=== PATIENT | female | born 1990 | race Caucasian/White ===

== ENCOUNTER 2016-11-26 09:49 | Day surgery (SDC) | payer BC ==
[2016-11-26] MEDS ORDERED: D5 LR 1000 ML 1,000 ML IV ONE (10:10)
[2016-11-26] MEDS ORDERED: DIPRIVAN VIAL 20 ML ONE (11:16)
[2016-11-26 12:09] VITALS: BP 117/70
== END 2016-11-26 12:00 | disposition home or self-care (01) ==
LOC: SURG1 09:49
PROVIDERS: ATTEND Internal Medicine Gastroenterology
PROC: 0DB58ZX Excision of Esophagus, Via Natural or Artificial Opening Endoscopic, Diagnostic (ICD-10-PCS; principal; 2016-11-26 13:00)
PROC: 0DB88ZX Excision of Small Intestine, Via Natural or Artificial Opening Endoscopic, Diagnostic (ICD-10-PCS; principal; 2016-11-26 13:00)
PROC: 0DJ08ZZ Inspection of Upper Intestinal Tract, Via Natural or Artificial Opening Endoscopic (ICD-10-PCS; principal; 2016-11-26 13:00)
PROC: 0DB68ZX Excision of Stomach, Via Natural or Artificial Opening Endoscopic, Diagnostic (ICD-10-PCS; principal; 2016-11-26 13:00)
PROC: 0D757ZZ Dilation of Esophagus, Via Natural or Artificial Opening (ICD-10-PCS; principal; 2016-11-26 13:00)
DX: R10.13 Epigastric pain (principal); R11.0 Nausea; R13.19 Other dysphagia; K21.9 Gastro-esophageal reflux disease without esophagitis; K22.2 Esophageal obstruction; K22.4 Dyskinesia of esophagus; K20.8 Other esophagitis; K29.60 Other gastritis without bleeding
CPT/HCPCS: A4217; J3490; J7120

== ENCOUNTER → 2016-12-02 | Outpatient (CLI) | payer BC ==
[2016-11-26 12:09] VITALS: BP 117/70
[2016-12-02 13:53] LABS: BASOPHILS # (AUTO) 0.1 X10^3/uL (0.0-0.1); BASOPHILS % (AUTO) 0.8 % (0.2-1.0); EOSINOPHILS # (AUTO) 0.1 x10^3/uL (0.0-0.2); EOSINOPHILS % (AUTO) 0.7 % (0.9-2.9); HEMATOCRIT 41.4 % (36.0-47.0); HEMOGLOBIN 13.9 g/dL (12.0-16.0); LYMPHOCYTES # (AUTO) 2.6 X10^3/uL (1.3-2.9); LYMPHOCYTES % (AUTO) 31.6 % (21.0-51.0); MEAN CORPUSCULAR HEMOGLOBIN 28.9 pg (27.0-34.0); MEAN CORPUSCULAR HGB CONC 33.7 g/dL (33.0-35.0); MEAN PLATELET VOLUME 8.6 fL (7.4-11.0); MONOCYTES # (AUTO) 0.4 x10^3/uL (0.3-0.8); MONOCYTES % (AUTO) 4.7 % (0.0-13.0); NEUTROPHILS # (AUTO) 5.2 x10^3/uL (2.2-4.8); NEUTROPHILS % (AUTO) 62.2 % (42.0-75.0); PLATELET COUNT 205 X10^3/uL (150.0-450.0); RED BLOOD COUNT 4.82 X10^6/uL (3.5-5.4); RED CELL DISTRIBUTION WIDTH 14.1 % (11.6-16.5); WHITE BLOOD COUNT 8.3 X10^3/uL (3.6-10.0)
--- NOTE | 2016-12-02 13:58 | RAD ---
HISTORY: Shortness of breath Study: Two view chest Comparison: None Findings: There is gaseous distention of the stomach. The lungs are clear without consolidation, effusion or p neumothorax. The cardiac and mediastinal contours are within normal limits. The soft tissues are un remarkable. IMPRESSION: 1. No acute cardiopulmonary abnormality. Reported By:
== END ==
LOC: LAB 12:50
PROVIDERS: ATTEND Internal Medicine Gastroenterology
DX: R06.02 Shortness of breath (principal)
CPT/HCPCS: 36415; 71020; 85025

== ENCOUNTER 2018-12-16 07:24 | Inpatient (IN) ==
[2018-12-16] MEDS ORDERED: NS 1000 ML 1,000 ML ONE ×2 (07:34→10:57)
[2018-12-16] MEDS ORDERED: TORADOL 30 MG VIAL ONE ×2 (07:43→13:32)
[2018-12-16] MEDS ORDERED: ZOFRAN INJ 4 MG VIAL ONE ×4 (07:43→14:46)
[2018-12-16] MEDS ORDERED: NS 1000 ML 1,000 ML IV ONE ×2 (07:47→10:57)
[2018-12-16] MEDS ORDERED: TORADOL 30 MG VIAL IVP ONE ×2 (07:47→13:39)
[2018-12-16] MEDS ORDERED: ZOFRAN INJ 4 MG VIAL IVP ONE ×2 (07:47→09:58)
[2018-12-16] MEDS ORDERED: MORPHINE SULFATE INJ 4 MG ONE (07:53)
[2018-12-16] MEDS ORDERED: MORPHINE SULFATE INJ 4 MG IVP ONE (07:58)
[2018-12-16 08:08] LABS: BILIRUBIN,URINE NEGATIVE (NEGATIVE); BLOOD/HEMOGLOBIN,URINE 5+ (NEGATIVE); GLUCOSE, URINE NEGATIVE (NEGATIVE); KETONES,URINE NEGATIVE (NEGATIVE); LEUKOCYTE ESTERASE ,URINE 1+ (NEGATIVE); NITRITES,URINE NEGATIVE (NEGATIVE); PROTEIN,URINE 2+ (NEGATIVE); UROBILINOGEN,URINE NORMAL (NORMAL)
[2018-12-16 08:15] LABS: APPEARANCE,URINE HAZY (CLEAR); BACTERIA,URINE TRACE /HPF (NEGATIVE); COLOR,URINE ORANGE (YELLOW); MUCUS,URINE FEW /HPF (NEGATIVE); RBC,URINE TNTC /HPF (NONE SEEN); SQUAMOUS EPITHELIAL CELL,UR RARE /HPF (NEGATIVE)
[2018-12-16] MEDS ORDERED: FLOMAX PO STA (08:15)
[2018-12-16] MEDS ORDERED: FLOMAX ONE (08:16)
--- NOTE | 2018-12-16 08:27 | CT ---
HISTORY: Right flank pain Study: CT abdomen pelvis without contrast Comparison: 09/10/2015 Technique: Axial noncontrast images with coronal and sagittal reformats. Dose reduction procedures were used with mA/kv adjusted for body size. Findings: The lung bases are clear. The liver, spleen, adrenal glands, and pancreas are within normal limits to the limitations of an unenhanced examination. No opaque stones are visible within the gallbladder. Right renal calculi are identified. There is right-sided hydronephrosis proximal to a 7.5 mm calculus located at the right ureteropelvic junction. More distally the ureter is normal. Multiple left renal calculi are present. No left ureteral calculi are identified. No intraperitoneal or retroperitoneal lymphadenopathy of significance is identified. The aorta is of normal caliber. The appendix is normal. There is no evidence for diverticulitis or colitis. Examination of the pelvis demonstrated no evidence for pelvic masses, pelvic fluid, or pelvic lymphadenopathy. No bladder abnormality is identified. No lytic or blastic skeletal lesions of significance are identified. IMPRESSION: 7.5 mm obstructing proximal right ureteral calculus located at or near the right ureteropelvic junction Multiple bilateral nonobstructing renal calculi Reported By:
[2018-12-16] MEDS ORDERED: DILAUDID INJ IVP PRN (09:15)
--- NOTE | 2018-12-16 09:20 | DR.GENAD ---
HPI Time Seen Time Seen by Provider: 12/16/18 09:15 PCP Primary Care Physician: CARITO HPI Comment HPI Comment: PATIENT IS 28YR OLD WHITE FEMALE WITH HISTORY OF KIDNEY STONE IS IN ED WITH SEVERE RIGHT FLANK PAIN SINCE LAST NIGHT. PATIENT HAVE HISTORY OF OBTRCTING KIDNEY STONES. CT ABDOMEN AND PELLVIC 08/23 2014 AND 09/10/2015 HAVE REPORT OBSTRUCTING KIDNEY STONES PREVIOUSLY. SHE IS NAUSEATED AND VOMITING. LOW GRADE FEVER NO DYSURIA. Complaint/Symptoms Chief Complaint Doctors Comments: RIGHT FLANK PAIN SINCE LAST NIGHT. Chief Complaint:: PT STATED SHE HAS A HX OF KIDNEY STONES AND HAVING RIGHT FLANK PAIN SINCE LAST NIGHT Nurses notes reviewed Nurses Notes Review: Yes Source History Provided: Patient Mode of Arrival Mode of Arrival: Ambulatory Timing Onset of Chief Complaint: 12/15/18 Came on: Suddenly Duration Duration: Constant Duration: Hours Location Location: PAIN LOCATED IN THE RIGHT FLANK ARREA. Severity Severity: Severe Modifying Factors Worsens:: MOVEMENT. Improves:: LAYING STILL. Associated Signs and Symptoms Associated Signs and Symptoms: PAIN ASSOCIATED WITH NAUSEA AND VOMITING. Other History Other History: HISTORY OF OBSTRUCTING KIDNEY STONE. PMH PMH Past Medical History: Yes Past Medical History: Hypothyroidism and Kidney Stones Past Surgical History: Yes Surgical History: , Ortho Surgery and Lithotripsy Family History History of Family Medical Conditions: Yes Family Medical History: Cancer and Hypertension Social History Does patient currently use any type of tobacco product: No Have you used tobacco products in the last 12 months: No Type of Tobacco Use: None Does any household member use tobacco: No Alcohol Use: None Do you use any recreational Drugs:: No Lives With: Family Lives Where: Home infectious screening In the last 2 months have you had wt loss of >10#?: NO Have you had fever, night sweats or hemotysis?: No Have you traveled outside the country in the last 6 months?: No Isolation: Standard ROS Review of Systems Constitutional: No Symptoms Reported, Fever and Fatigue; negative Chills and Weakness Eyes: No Symptoms Reported; negative Eye Pain, Tearing and Discharge ENTM: No Symptoms Reported; negative Ear Pain, Nose Discharge, Nose Congestion and Throat Pain Respiratoy: negative Productive Cough, Short of Breath, Wheezing and Hemoptysis Cardiovascular: No Symptoms Reported; negative Chest Pain and Edema Gastrointestinal/Abdominal: Abdominal Pain, Nausea and Vomiting; negative Constipation and Diarrhea Genitourinary: Other (RIGHT FLANK PAIN.); negative Dysuria, Frequency and Hematuria Neurological: negative Headache, Seizure, Weakness and Dizziness Musculoskeletal: Back Pain (RIGHT FLANK PAIN.); negative Muscle Pain Integumentary: No Symptoms Reported; negative Change in Color, Bruises and Juandice Hematologic/Lymphatic: No Symptoms Reported; negative Anemia, Easy Bleeding, Easy Bruising, Swollen Glands and Lymphadenopathy Endocrine: No Symptoms Reported; negative Flushing, Increased Thirst and Increased Urine Psychiatric: No Symptoms Reported All Other Systems: Reviewed and Negative PE Vital Signs Vitals: Temperature 99.6 F Pulse Rate [Right Brachial] 56 Respiratory Rate 18 Blood Pressure [Right Arm] 124/87 Blood Pressure [Left Arm] 126/61 Blood Pressure 126/61 O2 Sat by Pulse Oximetry 96 General Limitations: No Limitations General Appearance: Alert and In No Apparent Distress; negative In Distress Head Head Exam: Normal Inspection, Atraumatic and Normocephalic Eyes Eye exam: Normal Appearance and PERRL; negative Scleral Icterus and Conjunctival Injection ENT ENT Exam: Normal Exam, Normal Oropharynx, Normal External Ear Exam, Mucous Membranes Dry and TM's Normal Bilaterally External Ear Exam: Normal External Inspection; negative Mastoid Tenderness, Pain with Movement and External Tenderness TM/Canal Exam: Bilateral: Normal Nose Exam: Normal Nose Exam; negative Sinus Tenderness, Nasal Deviation and Septal Hematoma Mouth Exam: Normal Inspection; negative Trismus, Lip Swelling and Tongue Swelling Throat Exam: Normal Inspection; negative Tonsillar Erythema, Tonsillomegaly and Tonsillar Exudate Neck Neck Exam: Normal Inspection, Full ROM and Trachea Midline; negative Tenderness Chest Chest Inspection: Normal Inspection and Symmetric Chest Wall Rise; negative Tenderness and Rash Respiratory Respiratory Exam: Normal Lung Sounds Bilat; negative Accessory Muscle Use, Chest Wall Tenderness and Respiratory Distress Respiratory Exam: Bilateral: Clear to Auscultation Cardiovascular Cardiovascular Exam: Regular Rate and Normal Rhythm; negative Systolic Murmur, Diastolic Murmur, Rubs and Gallop Abdominal Exam Abdominal Exam: Normal Bowel Sounds and Soft; negative Tenderness Extremities Extremities Exam: Normal Inspection and Normal Capillary Refill; negative Tender ness and Edema Back Back Exam: (R) CVA Tenderness; negative Tenderness, Paraspinal Tenderness and Vertebral Tenderness Neurologic Neurological Exam: Alert and Oriented X3; negative Motor Sensory Deficit Psychiatric Psychiatric Exam: Normal Affect and Normal Mood Skin Skin Exam: Dry MDM Additional Information Additional Information Obtained From: Old Records and Family Differential Diagnosis Differential Diagnosis: KIDNEY STONE, PYELONEPHRITIS, UTI COURSE Treatment Treatment: SEE ORDERS. 07:35 : TORADOL 30MG IV AND 07:44 : NS 1L IV BOLUS IN ED. MORPHINE 4MG AND ZOFRAN 4MG IV IN ED. PAIN IMPROVE BUT CAME BACK AFTER FEW HOURS. NORMAL SALINE IV BOLUS IN ED. 09:15 : DILAUDID 2MG IV. PATIENT STILL HAVING PAIN. FLOMAX 0.4MG PO. PATIENT CONTINUE TO HAVE PAIN. AFTER 2 LITERS OF NS AMD SEVERAL DOSES OF PAIN MEDS, PATIENT WAS ADMITTED TO HOSPITAL. Consultation Consultation Comments: DR. ENAMORADO WILL ADMIT PATIENT PER NURSE. PRELIMINARY ADMIT ORDERS DONE BY ME. Education/Counseling Education/Counseling: Patient and Family Educated On: Diagnosis ROR Labs Reviewed Laboratory Results Reviewed?: Yes Result Diagrams: 12/19/18 04:46 12/19/18 04:46 Laboratory: WBC 6.7 X10^3/uL (3.6-10.0) 12/19/18 04:46 RBC 3.68 X10^6/uL (3.5-5.4) 12/19/18 04:46 Hgb 10.7 g/dL (12.0-16.0) L 12/19/18 04:46 Hct 32.3 % (36.0-47.0) L 12/19/18 04:46 MCV 87.8 fL (80.0-100.0) 12/19/18 04:46 MCH 29.1 pg (27.0-34.0) 12/19/18 04:46 MCHC 33.2 g/dL (33.0-35.0) 12/19/18 04:46 RDW 15.2 % (11.6-16.5) 12/19/18 04:46 Plt Count 192 X10^3/uL (150.0-450.0) 12/19/18 04:46 MPV 9.1 fL (7.4-11.0) 12/19/18 04:46 Neut % (Auto) 67.8 % (42.0-75.0) 12/19/18 04:46 Lymph % (Auto) 22.7 % (21.0-51.0) 12/19/18 04:46 White % (Auto) 6.6 % (0.0-13.0) 12/19/18 04:46 Eos % (Auto) 2.5 % (0.9-2.9) 12/19/18 04:46 Baso % (Auto) 0.4 % (0.2-1.0) 12/19/18 04:46 Neut # (Auto) 4.5 x10^3/uL (2.2-4.8) 12/19/18 04:46 Lymph # (Auto) 1.5 X10^3/uL (1.3-2.9) 12/19/18 04:46 White # (Auto) 0.4 x10^3/uL (0.3-0.8) 12/19/18 04:46 Eos # (Auto) 0.2 x10^3/uL (0.0-0.2) 12/19/18 04:46 Baso # (Auto) 0.0 X10^3/uL (0.0-0.1) 12/19/18 04:46 Absolute Nucleated RBC 0.0 /100WBC 12/19/18 04:46 Sodium 142 mmol/L (136-145) 12/19/18 04:46 Corrected Sodium TNP 12/19/18 04:46 Potassium 3.9 mmol/L (3.5-5.1) 12/19/18 04:46 Chloride 110 mmol/L (98-107) H 12/19/18 04:46 Carbon Dioxide 23.6 mmol/L (21-32) 12/19/18 04:46 BUN 6 mg/dL (7-18) L 12/19/18 04:46 Creatinine 1.12 mg/dL (0.55-1.02) H 12/19/18 04:46 Est GFR (MDRD) Af Amer > 60 (>60) 12/19/18 04:46 Est GFR (MDRD) Non-Af > 60 (>60) 12/19/18 04:46 Glucose 94 mg/dL (65-99) 12/19/18 04:46 Calcium 8.2 mg/dL (8.5-10.1) L 12/19/18 04:46 Corrected Calcium 9.3 mg/dL (8.5-10.1) 12/19/18 04:46 Total Bilirubin 0.20 mg/dL (0.2-1.0) 12/19/18 04:46 AST 10 Units/L (15-37) L 12/19/18 04:46 ALT 19 Units/L (12-78) 12/19/18 04:46 Alkaline Phosphatase 57 Units/L (46-116) 12/19/18 04:46 Creatine Kinase 35 Units/L (26-192) 12/18/18 19:04 CK-MB (CK-2) < 1.0 ng/mL (0-4.0) 12/18/18 19:04 CK/CKMB % Calc 2.9 % (<4) 12/18/18 19:04 Troponin I < 0.02 ng/mL (0-1.5) 12/18/18 19:04 Total Protein 5.7 g/dL (6.4-8.2) L 12/19/18 04:46 Albumin 2.6 g/dL (3.4-5.0) L 12/19/18 04:46 Globulin 3.1 g/dL (2.5-4.5) 12/19/18 04:46 Albumin/Globulin Ratio 0.8 Ratio (1.1-2.1) L 12/19/18 04:46 Specimen Type Clean catch urine 12/16/18 19:15 Urine Color Yellow (YELLOW) 12/16/18 19:15 Urine Appearance Cloudy (CLEAR) 12/16/18 19:15 Urine pH 6.0 (5.0 - 8.0) 12/16/18 19:15 Ur Specific [place] 1.020 (1.000-1.030) 12/16/18 19:15 Urine Protein 2+ (NEGATIVE) 12/16/18 19:15 Urine Glucose (UA) Negative (NEGATIVE) 12/16/18 19:15 Urine Ketones Negative (NEGATIVE) 12/16/18 19:15 Urine Occult Blood 5+ (NEGATIVE) 12/16/18 19:15 Urine Nitrite Negative (NEGATIVE) 12/16/18 19:15 Urine Bilirubin Negative (NEGATIVE) 12/16/18 19:15 Urine Urobilinogen Normal (NORMAL) 12/16/18 19:15 Ur Leukocyte Esterase 1+ (NEGATIVE) 12/16/18 19:15 Urine RBC Tntc /HPF (NONE SEEN) 12/16/18 19:15 Urine WBC 3-5 /HPF (NONE SEEN) 12/16/18 19:15 Ur Squamous Epith Cells Few /HPF (NEGATIVE) 12/16/18 19:15 Urine Bacteria Trace /HPF (NEGATIVE) 12/16/18 19:15 Urine Mucus Few /HPF (NEGATIVE) 12/16/18 07:55 Ur Culture Indicated? No/not indicated 12/16/18 19:15 XRAY XRAY Interpreted by: Radiologist XRAY Findings: REPORT ON RECORD NOTED AND DISCUSS WITH PATIENT AND HER . Instructions Instructions: Kidney Stones Flank Pain, Adult, [id number]
[2018-12-16 09:38] LABS: BASOPHILS % (AUTO) 0.4 % (0.2-1.0); EOSINOPHILS % (AUTO) 0.5 % (0.9-2.9); HEMATOCRIT 37.2 % (36.0-47.0); HEMOGLOBIN 12.4 g/dL (12.0-16.0); LYMPHOCYTES # (AUTO) 1.2 X10^3/uL (1.3-2.9); LYMPHOCYTES % (AUTO) 17.6 % (21.0-51.0); MEAN CORPUSCULAR HEMOGLOBIN 28.7 pg (27.0-34.0); MEAN CORPUSCULAR HGB CONC 33.3 g/dL (33.0-35.0); MEAN CORPUSCULAR VOLUME 86.3 fL (80.0-100.0); MEAN PLATELET VOLUME 8.4 fL (7.4-11.0); MONOCYTES # (AUTO) 0.4 x10^3/uL (0.3-0.8); MONOCYTES % (AUTO) 5.3 % (0.0-13.0); NEUTROPHILS # (AUTO) 5.4 x10^3/uL (2.2-4.8); NEUTROPHILS % (AUTO) 76.2 % (42.0-75.0); PLATELET COUNT 204 X10^3/uL (150.0-450.0); RED BLOOD COUNT 4.32 X10^6/uL (3.5-5.4); RED CELL DISTRIBUTION WIDTH 15.1 % (11.6-16.5)
[2018-12-16 09:46] LABS: ALANINE AMINOTRANSFERASE 26 Units/L (12-78); ALBUMIN 3.4 g/dL (3.4-5.0); ALKALINE PHOSPHATASE 63 Units/L (46-116); ASPARTATE AMINO TRANSFERASE 13 Units/L (15-37); BLOOD UREA NITROGEN 22 mg/dL (7-18); CALCIUM 8.7 mg/dL (8.5-10.1); CARBON DIOXIDE 24.6 mmol/L (21-32); CHLORIDE 106 mmol/L (98-107); CREATININE 0.87 mg/dL (0.55-1.02); SODIUM 140 mmol/L (136-145); TOTAL PROTEIN 6.5 g/dL (6.4-8.2); eGFR NON BLACK RACES > 60 (>60)
[2018-12-16] MEDS ORDERED: PHENERGAN INJ 25 MG IM ONE ×2 (10:57→11:02)
[2018-12-16] MEDS ORDERED: MORPHINE SULFATE INJ 2 MG INJ ONE (11:07)
[2018-12-16] MEDS ORDERED: PHENERGAN INJ 25 MG IM PRN (14:12)
[2018-12-16] MEDS ORDERED: PEPCID 20 MG IV PREMIX* 20 MG/50 ML BAG IV PRN (14:17)
[2018-12-16] MEDS: NS 1000 ML 1,000 ML IV SCH ×3 (14:56→23:01)
[2018-12-16] MEDS: ZOFRAN INJ 4 MG VIAL IVP PRN (14:56)
[2018-12-16] MEDS: DILAUDID INJ IVP PRN ×2 (14:56→23:00)
[2018-12-16] MEDS: TORADOL 30 MG VIAL IVP PRN (19:20)
[2018-12-16 20:04] LABS: BILIRUBIN,URINE NEGATIVE (NEGATIVE); BLOOD/HEMOGLOBIN,URINE 5+ (NEGATIVE); GLUCOSE, URINE NEGATIVE (NEGATIVE); KETONES,URINE NEGATIVE (NEGATIVE); LEUKOCYTE ESTERASE ,URINE 1+ (NEGATIVE); NITRITES,URINE NEGATIVE (NEGATIVE); PROTEIN,URINE 2+ (NEGATIVE); UROBILINOGEN,URINE NORMAL (NORMAL)
[2018-12-16 20:05] LABS: APPEARANCE,URINE CLOUDY (CLEAR); COLOR,URINE YELLOW (YELLOW)
[2018-12-16 20:10] LABS: BACTERIA,URINE TRACE /HPF (NEGATIVE); RBC,URINE TNTC /HPF (NONE SEEN); SQUAMOUS EPITHELIAL CELL,UR FEW /HPF (NEGATIVE)
[2018-12-17] MEDS: DILAUDID INJ IVP PRN ×3 (03:11→16:39)
[2018-12-17] MEDS: TORADOL 30 MG VIAL IVP PRN ×3 (04:49→20:12)
[2018-12-17 05:32] LABS: BASOPHILS % (AUTO) 0.3 % (0.2-1.0); EOSINOPHILS # (AUTO) 0.1 x10^3/uL (0.0-0.2); EOSINOPHILS % (AUTO) 2.1 % (0.9-2.9); HEMATOCRIT 35.1 % (36.0-47.0); HEMOGLOBIN 11.7 g/dL (12.0-16.0); LYMPHOCYTES # (AUTO) 1.8 X10^3/uL (1.3-2.9); LYMPHOCYTES % (AUTO) 27.1 % (21.0-51.0); MEAN CORPUSCULAR HEMOGLOBIN 29.3 pg (27.0-34.0); MEAN CORPUSCULAR HGB CONC 33.2 g/dL (33.0-35.0); MEAN CORPUSCULAR VOLUME 88.2 fL (80.0-100.0); MEAN PLATELET VOLUME 9.2 fL (7.4-11.0); MONOCYTES # (AUTO) 0.5 x10^3/uL (0.3-0.8); MONOCYTES % (AUTO) 7.5 % (0.0-13.0); NEUTROPHILS # (AUTO) 4.3 x10^3/uL (2.2-4.8); PLATELET COUNT 191 X10^3/uL (150.0-450.0); RED BLOOD COUNT 3.98 X10^6/uL (3.5-5.4); RED CELL DISTRIBUTION WIDTH 15.5 % (11.6-16.5); WHITE BLOOD COUNT 6.8 X10^3/uL (3.6-10.0)
[2018-12-17 05:36] LABS: ALANINE AMINOTRANSFERASE 21 Units/L (12-78); ALBUMIN 2.8 g/dL (3.4-5.0); ALKALINE PHOSPHATASE 58 Units/L (46-116); ASPARTATE AMINO TRANSFERASE 10 Units/L (15-37); BLOOD UREA NITROGEN 14 mg/dL (7-18); CARBON DIOXIDE 24.9 mmol/L (21-32); CHLORIDE 108 mmol/L (98-107); CREATININE 1.11 mg/dL (0.55-1.02); SODIUM 141 mmol/L (136-145); TOTAL PROTEIN 5.8 g/dL (6.4-8.2); eGFR NON BLACK RACES > 60 (>60)
[2018-12-17] MEDS: SYNTHROID 100 mcg TAB PO SCH (05:59)
[2018-12-17] MEDS: NS 1000 ML 1,000 ML IV SCH ×5 (07:12→20:15)
--- NOTE | 2018-12-17 20:03 | DR.H&P ---
H&P - History & Physical for Day of: H&P Date: 12/16/18 - Chief Complaint Chief Complaint: RIGHT FLANK PAIN - History of Present Illness History of Present Illness: IS A 28 YEAR OLD PATIENT OF OURS WHO PRESENTED TO THE ER WITH COMPLAINTS OF RIGHT FLANK PAIN X 1 DAY. PATIENT HAS A HISTORY OF KIDNEY STONES. ON ARRIVAL, VITALS WERE 98.6-20-53-99%-144/78. LABS WERE OBTAINED. ABNORMAL LAB VALUES INCLUDE THE FOLLOWING: BUN 22, GLUCOSE 107, AST 13. URINALYSIS REVEALED RBC TNTC, WBC 3-5, LEUKOCYTES 1+, BACTERIA TRACE. AN ABDOMEN/PELVIS CT WAS OBTAINED AND REVEALED: 7.5 mm obstructing proximal right ureteral calculus located at or near the right ureteropelvic junction. Multiple bilateral nonobstructing renal calculi. SHE WAS GIVEN A NORMAL SALINE BOLUS X 2, ZOFRAN 4MG IV X 2, TORADOL 30MG IV X 2 DOSES, DILAUDID 2MG IV X 1, FLOMAX 0.4MG PO X 1, AND MORPHIN 4MG IV X 1 DOSE. SHE REPORTED SLIGHT RELIEF OF PAIN. SHE WAS ADMITTED FOR FURTHER EVALUATION AND TREATMENT OF AN OBSTUCTING URETER STONE WITH FLANK PAIN. SHE WAS STARTED ON NORMAL SALINE AT 250ML/HR, TORADOL 30MG IV Q6H PRN, DILAUDID 1MG IV Q4H PRN, AND ZOFRAN 4MG IV Q6H PRN. WE PLAN TO FOLLOW UP WITH AM LABS AND CONTINUE TO MONITOR. - Past Medical History Past Medical History: Hypothyroidism, Kidney Stones - Past Surgical History Surgical History: , Lithotripsy, Ortho Surgery - Family History Family Medical History: Cancer, Hypertension - Social History Does patient currently use any type of tobacco product: No Have you used tobacco products in the last 12 months: No Type of Tobacco Use: None Does any household member use tobacco: No Alcohol Use: None Drug Use: None - Medications Home Medications: cefaclor [From Ceclor] Allergy (Verified 12/16/18 07:28) - Review of Systems Constitutional: No Symptoms Reported Eyes: No Symptoms Reported ENT: No Symptoms Reported Respiratory: No Symptoms Reported Cardiovascular: No Symptoms Reported Gastrointestinal: Nausea, Vomiting, Abdominal Pain Genitourinary: No Symptoms Reported Musculoskeletal: See HPI Skin: No Symptoms Reported Neurological: No Symptoms Reported - Physical Exam Vital Signs: Temperature 98.6 F Pulse Rate [Right Brachial] 82 Respiratory Rate 16 Blood Pressure [Right Arm] 115/55 Blood Pressure [Left Arm] 126/61 Blood Pressure 126/61 O2 Sat by Pulse Oximetry 98 Oriented: Normal Eyes: Normal Ear: Normal Nose: Normal Throat: Normal Respiratory: Diminished Throughout Cardiovascular: Normal : Normal Auscultation: Bowel Sounds: Normal Palpation: Normal Tenderness: RLQ, Other (RIGHT FLANK PAIN ) Skin: Normal Musculoskeletal: Normal Psychiatric: Normal Mood Description: Calm Affect: Normal Speech Pattern: Clear - Assessment/Plan (1) Urinary tract stones Status: Acute Plan: PAIN CONTROL, IV HYDRATION, CONTINUE TO MONITOR (2) Flank pain Status: Acute - Allergies Allergies/Adverse Reactions: Allergies Allergy/AdvReac Type Severity Reaction Status Date / Time cefaclor [From [facility]] Allergy Verified 12/16/18 07:28
[2018-12-18] MEDS: DILAUDID INJ IVP PRN ×3 (00:34→20:49)
[2018-12-18] MEDS: NS 1000 ML 1,000 ML IV SCH ×5 (00:38→18:06)
[2018-12-18] MEDS: TORADOL 30 MG VIAL IVP PRN ×3 (04:58→19:13)
[2018-12-18 05:29] LABS: BASOPHILS % (AUTO) 0.4 % (0.2-1.0); EOSINOPHILS # (AUTO) 0.2 x10^3/uL (0.0-0.2); EOSINOPHILS % (AUTO) 2.6 % (0.9-2.9); HEMATOCRIT 32.9 % (36.0-47.0); HEMOGLOBIN 10.9 g/dL (12.0-16.0); LYMPHOCYTES # (AUTO) 1.8 X10^3/uL (1.3-2.9); LYMPHOCYTES % (AUTO) 27.6 % (21.0-51.0); MEAN CORPUSCULAR HEMOGLOBIN 29.3 pg (27.0-34.0); MEAN CORPUSCULAR HGB CONC 33.2 g/dL (33.0-35.0); MEAN CORPUSCULAR VOLUME 88.1 fL (80.0-100.0); MONOCYTES # (AUTO) 0.4 x10^3/uL (0.3-0.8); MONOCYTES % (AUTO) 6.8 % (0.0-13.0); NEUTROPHILS # (AUTO) 4.1 x10^3/uL (2.2-4.8); NEUTROPHILS % (AUTO) 62.6 % (42.0-75.0); PLATELET COUNT 189 X10^3/uL (150.0-450.0); RED BLOOD COUNT 3.73 X10^6/uL (3.5-5.4); RED CELL DISTRIBUTION WIDTH 15.4 % (11.6-16.5); WHITE BLOOD COUNT 6.5 X10^3/uL (3.6-10.0)
[2018-12-18 05:40] LABS: ALANINE AMINOTRANSFERASE 19 Units/L (12-78); ALBUMIN 2.7 g/dL (3.4-5.0); ALKALINE PHOSPHATASE 56 Units/L (46-116); ASPARTATE AMINO TRANSFERASE 9 Units/L (15-37); BLOOD UREA NITROGEN 8 mg/dL (7-18); CALCIUM 8.2 mg/dL (8.5-10.1); CHLORIDE 110 mmol/L (98-107); COR CA(FOR HYPOALB) 9.2 mg/dL (8.5-10.1); CREATININE 1.09 mg/dL (0.55-1.02); SODIUM 142 mmol/L (136-145); TOTAL PROTEIN 5.6 g/dL (6.4-8.2); eGFR NON BLACK RACES > 60 (>60)
[2018-12-18] MEDS: SYNTHROID 100 mcg TAB PO SCH (06:00)
--- NOTE | 2018-12-18 08:04 | CT ---
HISTORY: Right flank pain with history of stones Study: CT abdomen and pelvis without contrast Comparison: December 16, 2018 Technique: Multiple axial images of the abdomen and pelvis were obtained from the lung bases to the pubic symphysis without the administration of IV contrast. AEC was utilized. Findings: There has been interval development of patchy bibasilar consolidation representing atelectasis versus pneumonia. The liver, spleen, pancreas, and adrenal glands are unremarkable. The gallbladder is unremarkable in its CT appearance. There are numerous bilateral renal caliceal stones with a persistent 7-8 mm stone at the right UPJ with severe proximal hydronephrosis and moderate perinephric stranding with the distal ureter mildly dilated as well. Hounsfield units greater than 900. There is asymmetric prominence of the right ovarian vein of uncertain etiology and of doubtful clinical significance. Trace free fluid is noted and felt to be physiologic in a patient of this age. There is no pneumoperitoneum. There are shotty probable reactive retroperitoneal lymph nodes. The appendix is not identified on this noncontrast exam. The urinary bladder is grossly unremarkable. The bony structures are grossly intact. There is a small mesenteric fat containing umbilical hernia. IMPRESSION: Persistent 7-8 mm right UPJ stone with moderate to severe obstructive uropathy which has progressed and bilateral nephrolithiasis. Incidental prominent right ovarian vein. Reported By:
[2018-12-18] MEDS: ZOFRAN INJ 4 MG VIAL IVP PRN ×2 (10:13→20:50)
[2018-12-18] MEDS ORDERED: PHENERGAN INJ 25 MG IM PRN (12:00)
[2018-12-18] MEDS ORDERED: PHENERGAN INJ 25 MG IM ONE (12:39)
--- NOTE | 2018-12-18 17:02 | PCM.PROG ---
Progress Note - Progress Note for Day of Date of Exam: 12/17/18 - Subjective Subjective: WAS ADMITTED FOR A OBSTRUCTING URETER STONE AND INTRACTABLE FLANK PAIN. TODAY, SHE IS ALERT AND ORIENTED, LYING IN BED ON MORNING ROUNDS. SHE CONTINUES WITH PAIN TO THE RIGHT FLANK. ON EXAMINATION, HEART IS REGULAR IN RATE AND RHYTHM. BILATERAL LUNGS ARE CLEAR TO AUSCULTATION. ABDOMEN IS ROUND, SOFT, AND NOTED WITH MILD PAIN TO THE RIGHT LOWER QUADRANT AND RIGHT FLANK AREA. HER VITALS THIS MORNING ARE 98.1-91-20-95%-128/68. LABS WERE OBTAINED. ABNORMAL LAB VALUES INCLUDE THE FOLLOWING: HGB 11.7, HCT 35.1, CHLORIDE 108, CREATININE 1.11, CALCIUM 8.0, AST 10, TOTAL PROTEIN 5.8, ALBUMIN 2.8. SHE IS CURRENTLY RECEIVING NORMAL SALINE AT 250ML/HR, DILAUDID 1MG IV Q4H PRN PAIN, AND TORADOL 30MG IV Q6H PRN PAIN. WE WILL CONTINUE WITH CURRENT PLAN OF CARE TODAY. WE WILL REPEAT AN ABDOMEN/PELVIS CT WITHOUT CONTRAST IN THE MORNING. OTHERWISE, WE WILL FOLLOW-UP WITH AM LABS AND CONTINUE TO MONITOR. - Past Medical Family Social History Past Med/Fam/Surg Hx: No changes since H&P Allergies: Allergies cefaclor [From Ceclor] Allergy (Verified 12/16/18 07:28) - Review of Systems ROS: No change since H&P - Vital Signs and I&O's Vital Signs: Temperature 99.1 F Pulse Rate [Right Brachial] 71 Respiratory Rate 18 Blood Pressure [Right Arm] 120/76 Blood Pressure [Left Arm] 126/61 Blood Pressure 126/61 O2 Sat by Pulse Oximetry 96 Intake and Output: Intake & Output 12/16/18 12/17/18 12/18/18 12/19/18 11:59 11:59 11:59 11:59 Intake Total 4900 / 4900 5800 / 5800 Output Total 1100 / 1100 4250 / 4250 Balance 3800 / 3800 1550 / 1550 - Physical Exam Oriented: Normal Eyes: Normal Ear: Normal Nose: Normal Throat: Normal Cardiovascular: Normal : Normal Auscultation: Bowel Sounds: Normal Palpation: Normal Tenderness: RLQ, Other (RIGHT FLANK PAIN ) Skin: Normal Musculoskeletal: Normal Psychiatric: Normal Mood Description: Calm Affect: Normal Speech Pattern: Clear, Appropriate - Laboratory and Diagnostics Result Diagrams: 12/18/18 04:52 12/18/18 04:52 Labs: Laboratory WBC 6.5 X10^3/uL (3.6-10.0) 12/18/18 04:52 RBC 3.73 X10^6/uL (3.5-5.4) 12/18/18 04:52 Hgb 10.9 g/dL (12.0-16.0) L 12/18/18 04:52 Hct 32.9 % (36.0-47.0) L 12/18/18 04:52 MCV 88.1 fL (80.0-100.0) 12/18/18 04:52 MCH 29.3 pg (27.0-34.0) 12/18/18 04:52 MCHC 33.2 g/dL (33.0-35.0) 12/18/18 04:52 RDW 15.4 % (11.6-16.5) 12/18/18 04:52 Plt Count 189 X10^3/uL (150.0-450.0) 12/18/18 04:52 MPV 9.0 fL (7.4-11.0) 12/18/18 04:52 Neut % (Auto) 62.6 % (42.0-75.0) 12/18/18 04:52 Lymph % (Auto) 27.6 % (21.0-51.0) 12/18/18 04:52 [place] % (Auto) 6.8 % (0.0-13.0) 12/18/18 04:52 Eos % (Auto) 2.6 % (0.9-2.9) 12/18/18 04:52 Baso % (Auto) 0.4 % (0.2-1.0) 12/18/18 04:52 Neut # (Auto) 4.1 x10^3/uL (2.2-4.8) 12/18/18 04:52 Lymph # (Auto) 1.8 X10^3/uL (1.3-2.9) 12/18/18 04:52 [place] # (Auto) 0.4 x10^3/uL (0.3-0.8) 12/18/18 04:52 Eos # (Auto) 0.2 x10^3/uL (0.0-0.2) 12/18/18 04:52 Baso # (Auto) 0.0 X10^3/uL (0.0-0.1) 12/18/18 04:52 Absolute Nucleated RBC 0.1 /100WBC 12/18/18 04:52 Sodium 142 mmol/L (136-145) 12/18/18 04:52 Corrected Sodium TNP 12/18/18 04:52 Potassium 4.0 mmol/L (3.5-5.1) 12/18/18 04:52 Chloride 110 mmol/L (98-107) H 12/18/18 04:52 Carbon Dioxide 23.0 mmol/L (21-32) 12/18/18 04:52 BUN 8 mg/dL (7-18) 12/18/18 04:52 Creatinine 1.09 mg/dL (0.55-1.02) H 12/18/18 04:52 Est GFR (MDRD) Af Amer > 60 (>60) 12/18/18 04:52 Est GFR (MDRD) Non-Af > 60 (>60) 12/18/18 04:52 Glucose 91 mg/dL (65-99) 12/18/18 04:52 Calcium 8.2 mg/dL (8.5-10.1) L 12/18/18 04:52 Corrected Calcium 9.2 mg/dL (8.5-10.1) 12/18/18 04:52 Total Bilirubin 0.20 mg/dL (0.2-1.0) 12/18/18 04:52 AST 9 Units/L (15-37) L 12/18/18 04:52 ALT 19 Units/L (12-78) 12/18/18 04:52 Alkaline Phosphatase 56 Units/L (46-116) 12/18/18 04:52 Total Protein 5.6 g/dL (6.4-8.2) L 12/18/18 04:52 Albumin 2.7 g/dL (3.4-5.0) L 12/18/18 04:52 Globulin 2.9 g/dL (2.5-4.5) 12/18/18 04:52 Albumin/Globulin Ratio 0.9 Ratio (1.1-2.1) L 12/18/18 04:52 Specimen Type Clean catch urine 12/16/18 19:15 Urine Color Yellow (YELLOW) 12/16/18 19:15 Urine Appearance Cloudy (CLEAR) 12/16/18 19:15 Urine pH 6.0 (5.0 - 8.0) 12/16/18 19:15 Ur Specific [place] 1.020 (1.000-1.030) 12/16/18 19:15 Urine Protein 2+ (NEGATIVE) 12/16/18 19:15 Urine Glucose (UA) Negative (NEGATIVE) 12/16/18 19:15 Urine Ketones Negative (NEGATIVE) 12/16/18 19:15 Urine Occult Blood 5+ (NEGATIVE) 12/16/18 19:15 Urine Nitrite Negative (NEGATIVE) 12/16/18 19:15 Urine Bilirubin Negative (NEGATIVE) 12/16/18 19:15 Urine Urobilinogen Normal (NORMAL) 12/16/18 19:15 Ur Leukocyte Esterase 1+ (NEGATIVE) 12/16/18 19:15 Urine RBC Tntc /HPF (NONE SEEN) 12/16/18 19:15 Urine WBC 3-5 /HPF (NONE SEEN) 12/16/18 19:15 Ur Squamous Epith Cells Few /HPF (NEGATIVE) 12/16/18 19:15 Urine Bacteria Trace /HPF (NEGATIVE) 12/16/18 19:15 Urine Mucus Few /HPF (NEGATIVE) 12/16/18 07:55 Ur Culture Indicated? No/not indicated 12/16/18 19:15 - Plan (1) Urinary tract stones Status: Acute Plan: REPEAT ABD/PELVIS CT IN AM, PAIN CONTROL, IV HYDRATION, CONTINUE TO M ONITOR (2) Flank pain Status: Acute
[2018-12-18 19:31] LABS: CREATINE KINASE 35 Units/L (26-192); CREATINE KINASE MB < 1.0 ng/mL (0-4.0); TROPONIN I < 0.02 ng/mL (0-1.5)
[2018-12-18 19:47] LABS: CKMB % 2.9 % (<4)
--- NOTE | 2018-12-18 21:17 | PCM.PROG ---
Progress Note - Progress Note for Day of Date of Exam: 12/18/18 - Subjective Subjective: WAS ADMITTED FOR A OBSTRUCTING URETER STONE AND INTRACTABLE FLANK PAIN. TODAY, SHE IS ALERT AND ORIENTED, LYING IN BED ON MORNING ROUNDS. SHE CONTINUES WITH MODERATE PAIN TO THE RIGHT FLANK. ON EXAMINATION, HEART IS REGULAR IN RATE AND RHYTHM. BILATERAL LUNGS ARE CLEAR TO AUSCULTATION. ABDOMEN IS ROUND, SOFT, AND NOTED WITH PAIN TO THE RIGHT LOWER QUADRANT AND RIGHT FLANK AREA. HER VITALS THIS MORNING ARE 98.3-53-20-98%-110/66. LABS WERE OBTAINED. ABNORMAL LAB VALUES INCLUDE THE FOLLOWING: HGB 10.9, HCT 32.9, CHLORIDE 110, CREATININE 1.09, CALCIUM 8.2, AST 9, TOTAL PROTEIN 5.6, ALBUMIN 2.7. AN ABDOMEN/PELVIS CT WAS REPEATED THIS MORNING AND REVEALED: Persistent 7-8 mm right UPJ stone with moderate to severe obstructive uropathy which has progressed and bilateral nephrolithiasis. Incidental prominent right ovarian vein. SHE IS CURRENTLY RECEIVING NORMAL SALINE AT 250ML/HR, DILAUDID 1MG IV Q4H PRN PAIN, AND TORADOL 30MG IV Q6H PRN PAIN. WE WILL CONTINUE WITH CURRENT PLAN OF CARE TODAY. OTHERWISE, WE WILL FOLLOW-UP WITH AM LABS AND CONTINUE TO MONITOR. - Past Medical Family Social History Past Med/Fam/Surg Hx: No changes since H&P Allergies: Allergies cefaclor [From Ceclor] Allergy (Verified 12/16/18 07:28) - Review of Systems ROS: No change since H&P - Vital Signs and I&O's Vital Signs: Temperature 100.1 F Pulse Rate [Right Brachial] 55 Respiratory Rate 18 Blood Pressure [Right Arm] 157/72 Blood Pressure [Left Arm] 126/61 Blood Pressure 126/61 O2 Sat by Pulse Oximetry 99 Intake and Output: Intake & Output 12/16/18 12/17/18 12/18/18 12/19/18 11:59 11:59 11:59 11:59 Intake Total 4900 / 4900 5800 / 5800 360 / 360 Output Total 1100 / 1100 4250 / 4250 2100 / 2100 Balance 3800 / 3800 1550 / 1550 -1740 / -1740 - Physical Exam Oriented: Normal Eyes: Normal Ear: Normal Nose: Normal Throat: Normal Respiratory: Diminished Cardiovascular: Normal : Normal Auscultation: Bowel Sounds: Normal Palpation: Normal Tenderness: RLQ, Other (RIGHT FLANK PAIN ) Skin: Normal Musculoskeletal: Normal Psychiatric: Normal Mood Description: Calm Affect: Normal Speech Pattern: Clear, Appropriate - Laboratory and Diagnostics Result Diagrams: 12/18/18 04:52 12/18/18 04:52 Labs: Laboratory WBC 6.5 X10^3/uL (3.6-10.0) 12/18/18 04:52 RBC 3.73 X10^6/uL (3.5-5.4) 12/18/18 04:52 Hgb 10.9 g/dL (12.0-16.0) L 12/18/18 04:52 Hct 32.9 % (36.0-47.0) L 12/18/18 04:52 MCV 88.1 fL (80.0-100.0) 12/18/18 04:52 MCH 29.3 pg (27.0-34.0) 12/18/18 04:52 MCHC 33.2 g/dL (33.0-35.0) 12/18/18 04:52 RDW 15.4 % (11.6-16.5) 12/18/18 04:52 Plt Count 189 X10^3/uL (150.0-450.0) 12/18/18 04:52 MPV 9.0 fL (7.4-11.0) 12/18/18 04:52 Neut % (Auto) 62.6 % (42.0-75.0) 12/18/18 04:52 Lymph % (Auto) 27.6 % (21.0-51.0) 12/18/18 04:52 Ogle % (Auto) 6.8 % (0.0-13.0) 12/18/18 04:52 Eos % (Auto) 2.6 % (0.9-2.9) 12/18/18 04:52 Baso % (Auto) 0.4 % (0.2-1.0) 12/18/18 04:52 Neut # (Auto) 4.1 x10^3/uL (2.2-4.8) 12/18/18 04:52 Lymph # (Auto) 1.8 X10^3/uL (1.3-2.9) 12/18/18 04:52 Ogle # (Auto) 0.4 x10^3/uL (0.3-0.8) 12/18/18 04:52 Eos # (Auto) 0.2 x10^3/uL (0.0-0.2) 12/18/18 04:52 Baso # (Auto) 0.0 X10^3/uL (0.0-0.1) 12/18/18 04:52 Absolute Nucleated RBC 0.1 /100WBC 12/18/18 04:52 Sodium 142 mmol/L (136-145) 12/18/18 04:52 Corrected Sodium TNP 12/18/18 04:52 Potassium 4.0 mmol/L (3.5-5.1) 12/18/18 04:52 Chloride 110 mmol/L (98-107) H 12/18/18 04:52 Carbon Dioxide 23.0 mmol/L (21-32) 12/18/18 04:52 BUN 8 mg/dL (7-18) 12/18/18 04:52 Creatinine 1.09 mg/dL (0.55-1.02) H 12/18/18 04:52 Est GFR (MDRD) Af Amer > 60 (>60) 12/18/18 04:52 Est GFR (MDRD) Non-Af > 60 (>60) 12/18/18 04:52 Glucose 91 mg/dL (65-99) 12/18/18 04:52 Calcium 8.2 mg/dL (8.5-10.1) L 12/18/18 04:52 Corrected Calcium 9.2 mg/dL (8.5-10.1) 12/18/18 04:52 Total Bilirubin 0.20 mg/dL (0.2-1.0) 12/18/18 04:52 AST 9 Units/L (15-37) L 12/18/18 04:52 ALT 19 Units/L (12-78) 12/18/18 04:52 Alkaline Phosphatase 56 Units/L (46-116) 12/18/18 04:52 Creatine Kinase 35 Units/L (26-192) 12/18/18 19:04 CK-MB (CK-2) < 1.0 ng/mL (0-4.0) 12/18/18 19:04 CK/CKMB % Calc 2.9 % (<4) 12/18/18 19:04 Troponin I < 0.02 ng/mL (0-1.5) 12/18/18 19:04 Total Protein 5.6 g/dL (6.4-8.2) L 12/18/18 04:52 Albumin 2.7 g/dL (3.4-5.0) L 12/18/18 04:52 Globulin 2.9 g/dL (2.5-4.5) 12/18/18 04:52 Albumin/Globulin Ratio 0.9 Ratio (1.1-2.1) L 12/18/18 04:52 Specimen Type Clean catch urine 12/16/18 19:15 Urine Color Yellow (YELLOW) 12/16/18 19:15 Urine Appearance Cloudy (CLEAR) 12/16/18 19:15 Urine pH 6.0 (5.0 - 8.0) 12/16/18 19:15 Ur Specific [place] 1.020 (1.000-1.030) 12/16/18 19:15 Urine Protein 2+ (NEGATIVE) 12/16/18 19:15 Urine Glucose (UA) Negative (NEGATIVE) 12/16/18 19:15 Urine Ketones Negative (NEGATIVE) 12/16/18 19:15 Urine Occult Blood 5+ (NEGATIVE) 12/16/18 19:15 Urine Nitrite Negative (NEGATIVE) 12/16/18 19:15 Urine Bilirubin Negative (NEGATIVE) 12/16/18 19:15 Urine Urobilinogen Normal (NORMAL) 12/16/18 19:15 Ur Leukocyte Esterase 1+ (NEGATIVE) 12/16/18 19:15 Urine RBC Tntc /HPF (NONE SEEN) 12/16/18 19:15 Urine WBC 3-5 /HPF (NONE SEEN) 12/16/18 19:15 Ur Squamous Epith Cells Few /HPF (NEGATIVE) 12/16/18 19:15 Urine Bacteria Trace /HPF (NEGATIVE) 12/16/18 19:15 Urine Mucus Few /HPF (NEGATIVE) 12/16/18 07:55 Ur Culture Indicated? No/not indicated 12/16/18 19:15 - Plan (1) Urinary tract stones Status: Acute Plan: REPEAT ABD/PELVIS CT IN AM, PAIN CONTROL, IV HYDRATION, CONTINUE TO MONITOR (2) Flank pain Status: Acute
[2018-12-19] MEDS: DILAUDID INJ IVP PRN ×3 (03:48→13:01)
[2018-12-19] MEDS: ZOFRAN INJ 4 MG VIAL IVP PRN ×3 (03:48→13:03)
[2018-12-19 05:24] LABS: BASOPHILS % (AUTO) 0.4 % (0.2-1.0); EOSINOPHILS # (AUTO) 0.2 x10^3/uL (0.0-0.2); EOSINOPHILS % (AUTO) 2.5 % (0.9-2.9); HEMATOCRIT 32.3 % (36.0-47.0); HEMOGLOBIN 10.7 g/dL (12.0-16.0); LYMPHOCYTES # (AUTO) 1.5 X10^3/uL (1.3-2.9); LYMPHOCYTES % (AUTO) 22.7 % (21.0-51.0); MEAN CORPUSCULAR HEMOGLOBIN 29.1 pg (27.0-34.0); MEAN CORPUSCULAR HGB CONC 33.2 g/dL (33.0-35.0); MEAN CORPUSCULAR VOLUME 87.8 fL (80.0-100.0); MEAN PLATELET VOLUME 9.1 fL (7.4-11.0); MONOCYTES # (AUTO) 0.4 x10^3/uL (0.3-0.8); MONOCYTES % (AUTO) 6.6 % (0.0-13.0); NEUTROPHILS # (AUTO) 4.5 x10^3/uL (2.2-4.8); NEUTROPHILS % (AUTO) 67.8 % (42.0-75.0); PLATELET COUNT 192 X10^3/uL (150.0-450.0); RED BLOOD COUNT 3.68 X10^6/uL (3.5-5.4); RED CELL DISTRIBUTION WIDTH 15.2 % (11.6-16.5); WHITE BLOOD COUNT 6.7 X10^3/uL (3.6-10.0)
[2018-12-19] MEDS: NS 1000 ML 1,000 ML IV SCH ×2 (05:30→10:58)
[2018-12-19 05:39] LABS: ALANINE AMINOTRANSFERASE 19 Units/L (12-78); ALBUMIN 2.6 g/dL (3.4-5.0); ALKALINE PHOSPHATASE 57 Units/L (46-116); ASPARTATE AMINO TRANSFERASE 10 Units/L (15-37); BLOOD UREA NITROGEN 6 mg/dL (7-18); CALCIUM 8.2 mg/dL (8.5-10.1); CARBON DIOXIDE 23.6 mmol/L (21-32); CHLORIDE 110 mmol/L (98-107); COR CA(FOR HYPOALB) 9.3 mg/dL (8.5-10.1); CREATININE 1.12 mg/dL (0.55-1.02); SODIUM 142 mmol/L (136-145); TOTAL PROTEIN 5.7 g/dL (6.4-8.2); eGFR NON BLACK RACES > 60 (>60)
[2018-12-19] MEDS: SYNTHROID 100 mcg TAB PO SCH (06:08)
[2018-12-19] MEDS: TORADOL 30 MG VIAL IVP PRN (07:50)
[2018-12-19 10:56] VITALS: BMI 40.8
[2018-12-19 12:08] VITALS: BP 124/87
== END 2018-12-19 14:20 | disposition home or self-care (01) | DRG 694 ==
LOC: ER 07:27 → MED/SURG 14:11
PROVIDERS: ADMIT Internal Medicine; ATTEND Internal Medicine
DX: R11.2 Nausea with vomiting, unspecified; E11.65 Type 2 diabetes mellitus with hyperglycemia; Z87.442 Personal history of urinary calculi; R10.84 Generalized abdominal pain; N20.2 Calculus of kidney with calculus of ureter; R07.89 Other chest pain; I10 Essential (primary) hypertension; R06.02 Shortness of breath
CPT/HCPCS: 36415; 74176; 80053; 81001; 82550; 82553; 84484; 85025; 93005; 96365; 96367; 96374; 96375; 99284; A4222; J1170; J1885; J2270; J2405; J2550; J7030